=== PATIENT | male | born 1955 | race African-American/Black ===

== ENCOUNTER 2017-04-26 06:13 | Emergency (ER) | payer OTHER ==
[~2017-04-26] VITALS: Ht 190.5 cm; Wt 117.9 kg
--- NOTE | ~2017-04-26 | EKG ---
[address] [place] [address] ELECTROCARDIOGRAM REPORT Name: MARÍACHUCHO Jorge Room #: [facility] Aranza#: [id number] Admission: 04/26/17 Attend Phys: Discharge: Date of : 53 Report #: [id number] THIS REPORT FOR: //name// [facility] ED Test Date: 2017-04-26 Test Time: 06:33:33 Pat Name: CHUCHO DANIEL Department: Room: Gender: Skein Yarn Drier: JAYCE : 1955 Requested By: Wanda Christie Order Number: [id number] MD: Tyler Patel Measurements Intervals [place] Rate: 78 P: 11 PA: 164 QRS: 11 QRSD: 86 T: 28 QT: 365 QTc: 416 Interpretive Statements Sinus rhythm Compared to ECG 10/30/2014 08:23:06 No significant changes Electronically Signed On 04-26-2017 7:49:41 [employer] by Tyler Patel [email or web address] <ELECTRONICALLY SIGNED> By: Tyler Patel MD 04/26/17 0749 0633 2 MD ZENON Velarde
[~2017-04-26 06:13] MED LIST: CELEBREX 200 M200 M1 PO; CELEXA20 MG PO; CLARITIN10 MG PO; NAPROSYN500 MG PO; NORCO 5-325 TA1 EACH PO; PREDNISONE 20 M20 M1 PO; PRILOSEC 20 MG20 MG PO; TRAMADOL 50 MG50 MG PO; WELCHOL 625 MG625 M1 PO; [UNRECOGNIZED DRUG - REMARK]
[2017-04-26 06:41] LABS: ABSOLUTE NEUTROPHILS 4.8 thou/uL (1.4-8.2); BASOPHILS 0.7 % (0.0-2.0); EOSINOPHILS 4.1 % (0.0-3.0); HEMATOCRIT 42.4 % (42.0-52.0); HEMOGLOBIN 14.3 gm/dL (14.0-18.0); LYMPHOCYTES 30.6 % (24.0-44.0); MCH 30.5 pg (26.0-34.0); MCHC 33.7 g/dL (28.0-37.0); MCV 90.5 fL (80.0-100.0); MONOCYTES 5.9 % (1.0-8.0); PLATELET COUNT 353 thou/uL (150-400); POLYS 58.7 % (36.0-66.0); RBC 4.68 mil/uL (4.50-6.00); RDW 13.9 % (10.5-14.5); WBC 8.2 thou/uL (4.0-11.0)
[2017-04-26] MEDS ORDERED: CYMBALTA20 MG PO (06:45)
[2017-04-26 06:51] LABS: ANION GAP 13 mmol/L (7-16); BUN 20 mg/dL (7-18); CALCIUM 9.4 mg/dL (8.5-10.1); CHLORIDE 105 mmol/L (98-107); CO2 22 mmol/L (21-32); CREATININE 1.3 mg/dL (0.7-1.3); GLUCOSE 169 mg/dL (74-106); POTASSIUM 4.4 mmol/L (3.5-5.1); SODIUM 140 mmol/L (136-145)
[2017-04-26 06:59] LABS: TROPONIN-I < 0.04 ng/mL (<0.06)
[2017-04-26] MEDS ORDERED: NAPROSYN500 MG PO (09:39)
[2017-04-26 10:10] VITALS: BP 134/84
[2017-10-31] MEDS ORDERED: NEURONTIN250 MG/5 M PO ×2 (14:33→14:38)
[2017-11-25] MEDS ORDERED: FLOMAX0.4 MG PO (13:18)
[2017-11-25] MEDS ORDERED: PREDNISONE 5 MG5 M1 PO (13:20)
[2017-11-25] MEDS ORDERED: CYMBALTA30 MG PO (13:20)
[2017-11-25] MEDS ORDERED: CENTRUM SILVER1 EAC4 PO (13:21)
[2017-11-25] MEDS ORDERED: NEURONTIN 300300 M1 PO (13:31)
[2017-12-02] MEDS ORDERED: ULTRAM 50MG TAB50 MG PO (10:56)
== END 2017-04-26 10:11 | disposition home or self-care (01) ==
LOC: ER 06:13
PROVIDERS: Emergency Medicine
DX: M94.0 Chondrocostal junction syndrome [Tietze] (principal)

== ENCOUNTER 2017-09-09 09:23 | Emergency (ER) | payer OTHER ==
[~2017-09-09] VITALS: Ht 190.5 cm; Wt 121.6 kg
[~2017-09-09 09:23] MED LIST changes: +CYMBALTA20 MG PO
[2017-09-09 10:13] LABS: URINE BILIRUBIN NEGATIVE (Negative); URINE BLOOD NEGATIVE (Negative); URINE CLARITY CLEAR; URINE COLOR YELLOW; URINE GLUCOSE-RANDOM* NEGATIVE (Negative); URINE KETONES NEGATIVE (Negative); URINE LEUKOCYTES-REFLEX NEGATIVE (Negative); URINE NITRITE-REFLEX NEGATIVE (Negative); URINE PROTEIN (DIPSTICK) NEGATIVE (Negative); URINE SPECIFIC GRAVITY >= 1.030 (1.005-1.035); URINE UROBILINOGEN 0.2 E.U./dl (0.2-1.0)
[2017-09-09 10:15] LABS: ABSOLUTE NEUTROPHILS 5.9 thou/uL (1.4-8.2); BASOPHILS 0.8 % (0.0-2.0); EOSINOPHILS 3.1 % (0.0-3.0); HEMATOCRIT 40.7 % (42.0-52.0); HEMOGLOBIN 13.8 gm/dL (14.0-18.0); LYMPHOCYTES 31.6 % (24.0-44.0); MCH 30.8 pg (26.0-34.0); MCHC 33.8 g/dL (28.0-37.0); MCV 91.1 fL (80.0-100.0); MONOCYTES 4.5 % (1.0-8.0); PLATELET COUNT 371 thou/uL (150-400); RBC 4.47 mil/uL (4.50-6.00); RDW 14.4 % (10.5-14.5); WBC 9.9 thou/uL (4.0-11.0)
[2017-09-09 10:18] LABS: CALCIUM 9.3 mg/dL (8.5-10.1); CREATININE 1.3 mg/dL (0.7-1.3); POTASSIUM 4.2 mmol/L (3.5-5.1)
[2017-09-09 10:24] LABS: ALBUMIN 4.2 g/dL (3.4-5.0); TOTAL BILIRUBIN 0.4 mg/dL (<0.1-1.0)
[2017-09-09] MEDS ORDERED: CRESTOR10 MG PO (10:43)
[2017-09-09] MEDS ORDERED: CYMBALTA30 MG PO (10:45)
[2017-09-09] MEDS ORDERED: PROSCAR 5MG TABL5 MG PO (10:52)
[2017-09-09] MEDS ORDERED: TRIGLIDE160 M1 PO (10:53)
[2017-09-09] MEDS ORDERED: FLOMAX0.4 MG PO (10:55)
[2017-09-09 11:36] VITALS: BP 113/87
== END 2017-09-09 11:43 | disposition home or self-care (01) ==
LOC: ER 09:23
PROVIDERS: Physician Assistant
DX: M79.1 Myalgia (principal); E78.5 Hyperlipidemia, unspecified; R74.8 Abnormal levels of other serum enzymes; E78.00 Pure hypercholesterolemia, unspecified; F32.9 Major depressive disorder, single episode, unspecified

== ENCOUNTER 2018-11-29 08:46 | Emergency (ER) | payer OTHER ==
[~2018-11-29] VITALS: Ht 190.5 cm; Wt 122.5 kg
[2018-11-29 08:46] VITALS: BP 127/88
[~2018-11-29 08:46] MED LIST changes: +CENTRUM SILVER1 EAC4 PO; +CRESTOR10 MG PO; +CYMBALTA30 MG PO; +FLOMAX0.4 MG PO; +NEURONTIN 300300 M1 PO; +NEURONTIN250 MG/5 M PO; +PREDNISONE 5 MG5 M1 PO; +PROSCAR 5MG TABL5 MG PO; +TRIGLIDE160 M1 PO; +ULTRAM 50MG TAB50 MG PO
[2018-11-29] MEDS ORDERED: LYRICA 50 MG50 MG PO ×2 (08:52→08:53)
[2018-11-29] MEDS ORDERED: NORCO 5-325 TA1 EAC1 PO (09:47)
== END 2018-11-29 09:47 | disposition home or self-care (01) ==
LOC: ER 08:46
DX: M25.562 Pain in left knee (principal); M25.462 Effusion, left knee; F32.9 Major depressive disorder, single episode, unspecified; E78.5 Hyperlipidemia, unspecified

== ENCOUNTER → 2019-09-04 | Outpatient (CLI) | payer OTHER ==
[~2019-09-04] MED LIST changes: +LYRICA 50 MG50 MG PO; +NORCO 5-325 TA1 EAC1 PO
== END ==
LOC: SJCVC 12:13
DX: R93.1 Abnormal findings on diagnostic imaging of heart and coronary circulation (principal); E78.00 Pure hypercholesterolemia, unspecified; I71.2 Thoracic aortic aneurysm, without rupture; M35.3 Polymyalgia rheumatica; I10 Essential (primary) hypertension; R74.8 Abnormal levels of other serum enzymes; E78.5 Hyperlipidemia, unspecified; Z82.49 Family history of ischemic heart disease and other diseases of the circulatory system; Z79.899 Other long term (current) drug therapy

== ENCOUNTER → 2019-09-19 | Outpatient (CLI) | payer OTHER | LOC: SJCVCIMAG 08:09 | PROVIDERS: ATTEND Internal Medicine Cardiovascular Disease | DX: I07.1 Rheumatic tricuspid insufficiency (principal); I11.9 Hypertensive heart disease without heart failure; R00.0 Tachycardia, unspecified; E78.5 Hyperlipidemia, unspecified ==

== ENCOUNTER → 2020-06-04 | Outpatient (CLI) | payer OTHER | LOC: SJCVC 11:08 | PROVIDERS: ATTEND Internal Medicine Cardiovascular Disease | DX: R93.1 Abnormal findings on diagnostic imaging of heart and coronary circulation (principal); I71.2 Thoracic aortic aneurysm, without rupture; E78.00 Pure hypercholesterolemia, unspecified; I10 Essential (primary) hypertension; E78.5 Hyperlipidemia, unspecified; F41.9 Anxiety disorder, unspecified; F32.9 Major depressive disorder, single episode, unspecified; Z79.82 Long term (current) use of aspirin; Z79.899 Other long term (current) drug therapy; Z72.89 Other problems related to lifestyle ==